=== PATIENT | female | born 1990 | race Caucasian/White ===

== ENCOUNTER 2016-03-18 13:45 | Emergency (ER) | payer BC, OTHER ==
--- NOTE | 2016-03-18 14:46 | ERNOTE ---
Abdominal HPI - Narrative Date of Service: 03/18/16 - General Chief Complaint: Abdominal Pain Time Seen by Provider: 03/18/16 14:21 Source: patient, family Exam Limitations: no limitations - Immun/Allergies/Home Medications Immunizatons: IMMUNIZATION HX Immunizations Up to Date Yes History of Influenza Vaccine Yes Hx Pneumococcal Vaccination No Allergies/Adverse Reactions: Allergies No Known Allergies Allergy (Unverified 08/27/12 14:40) Home Medications: HOME MEDICATIONS Cetirizine HCl [Zyrtec] 10 mg PO DAILY PRN 08/27/12 [Last Taken Unknown] Ibuprofen [Motrin] 800 mg PO QID PRN #30 tab 03/18/16 [Last Taken Unknown] - History of Present Illness Narrative: Upper abdominal pain for about a week. Tight pain. FH positive for gallbladder disease. Two days ago, began to crampy pain along her low pelvis. NOS. Timing: constant, getting worse Quality: moderate Activities at Onset: none Modifying Factors - (Worsens): Present: other - nothing Associated Symptoms: Present: back pain Review of Systems - Review of Systems Constitutional: Present: no symptoms reported EYE: Present: no symptoms reported ENT: Present: no symptoms reported Respiratory: Present: no symptoms reported Cardiology: Present: no symptoms reported Gastrointestinal/Abdominal: Present: See HPI - twisting the torso or eating food seem to make it a little worse. Genitourinary: Present: no symptoms reported Musculoskeletal: Present: no symptoms reported Skin: Present: no symptoms reported Neurological: Present: no symptoms reported - Patient's Past Medical History Patient History - Medical: Other - has been and had a child. has had PID Patient History - Cardiac/Respiratory: No pertinent hx Patient History - Cancer: No Hx of Cancer Patient History - Surgical Procedures: No surgical history Patient History - Other: None LMP (females 10-50): last week LMP (Calendar): 03/07/16 - Social History Living Situations: significant other Abuse History: No History of abuse Psych History: No pertinent hx Smoking Status: Never smoker Alcohol Use: rarely Drug Use: none - Immunizations Immunizations Up to Date: Yes Hx Pneumococcal Vaccination: No History of Influenza Vaccine: Yes Physical Exam - Physical Exam General Appearance: Present: wd/wn, alert, no apparent distress Eye Exam: Normal inspection: bilateral, PERRL: bilateral, EOMI: bilateral Ears, Nose, Throat: Present: normal ENT inspection, hearing grossly normal Neck: Present: normal inspection Respiratory: Present: no respiratory distress, normal breath sounds Cardiovascular/Chest: Present: regular rate, rhythm, no murmur Gastrointestinal/Abdominal: Present: normal bowel sounds, nondistended, soft, no organomegaly, tenderness - tender in RUQ Back Exam: Present: normal inspection, no CVA tenderness, no vertebral tenderness Extremity Exam: Present: normal inspection, non-tender, no edema, normal range of motion Neurological Exam: Present: alert, oriented Skin Exam: Present: normal color, warm/dry Lymphatic Exam: Present: no adenopathy Pelvic Exam: Present: active bleeding ED Progress - Results and Orders Patient's Lab Results:: I have reviewed the patient's lab results. - Vital Signs Patient's Vital Signs:: I have reviewed the patient's vital signs. Vital Signs: Vital Signs 03/18/16 14:06 Temperature 36.1 C L Pulse Rate 80 Respiratory 14 Rate Blood Pressure 128/79 O2 Sat by Pulse 100 Oximetry - CT/Ultrasound CT/Ultrasound Narrative: The radiologist called with her gb ultrasound report, it is normal - Progress/Reassessment Chief Complaint: Abdominal Pain Departure - Departure Clinical Impression: Pelvic pain Disposition: Home self-care Condition: Good Instructions: Pelvic Pain, Female, [id number] Additional Instructions: Followup with your doctor next week. Referrals: Blaise Huynh MD [Primary Care Provider] - Prescriptions: Ibuprofen [Motrin] 800 mg PO QID PRN #30 tab PRN Reason: pain
[2016-03-18 14:59] LABS: Hematocrit 40.9 % (37.0-47.0); Hemoglobin 14.1 gm/dL (12.5-16.0); Mean Cell Volume 83.5 fl (78-100); Mean Corpuscular Hemoglobin 28.8 pg (27-31); Mean Corpuscular Hgb Conc 34.5 g/dl (32-36); Mean Platelet Volume 10.5 fl (6.0-9.5); Neutrophil # 4.8 K/mm3 (1.3-6.0); Platelet Count 194 K/mm3 (150-450); Red Cell Distribution Width 12.1 % (11.5-14.0); White Blood Count 7.5 K/mm3 (4.0-10.5)
[2016-03-18 15:10] LABS: ALT 28 U/L (19-67); AST 15 U/L (0-48); Alkaline Phosphatase * 39 U/L (50-170); Amylase * 63 U/L (25-115); Anion Gap 10.3 mmol/L (6.8-13.8); BUN/Creatinine Ratio 18.2 (9.0-21.6); Bilirubin, Total 0.4 mg/dL (0.0-1.1); Blood Urea Nitrogen 16 mg/dL (3-23); Ca. Corrected For Albumin 8.9 mg/dL (8.4-10.2); Calcium * 9.2 mg/dL (7.9-10.9); Carbon Dioxide 27.7 mmol/L (24-32.6); Chloride 104 mmol/L (97-106); Glucose * 95 mg/dL (70-110); Lipase 156 U/L (73-393); Sodium 138 mmol/L (132-142); Total Protein 7.6 gm/dL (6.2-8.2)
[2016-03-18 15:17] LABS: Urine Appearance Slightly Cloudy; Urine Bilirubin Negative (NEGATIVE); Urine Blood Negative /ul (NEGATIVE); Urine Color Yellow; Urine Ketone Negative (NEGATIVE); Urine Nitrite Negative (NEGATIVE); Urine Protein Negative (NEGATIVE); Urine RBC None Seen /hpf (0-5); Urine Urobilinogen Normal (NORMAL); Urine WBC 0-5 /hpf (0-5)
[2016-03-18 15:18] LABS: Urine Bacteria None Seen
[2016-03-18 16:14] VITALS: BP 116/68
== END 2016-03-18 16:50 | disposition home or self-care (01) ==
LOC: ER 13:45
DX: R10.2 Pelvic and perineal pain (principal)